=== PATIENT | male | born 1945 | race Caucasian/White ===

== ENCOUNTER → 2017-01-22 | Day surgery (SDC) | payer OTHER ==
[~2017-01-22] MED LIST: ACETAMINOPHEN 1000 MG/100 ML VIAL IV ONE; BACT800T5 PO; BUPIVACAINE/EPINEPHRINE 0.25% PF 30 ML VIAL ONE; CALC600T12 PO; CHOL100025 CHEW; CLIN1CAP5 PO; KETOROLAC TROMETHAMINE 30 MG/ML (IVP) VIAL IV PUSH ONE; LACTATED RINGER'S 1000 ML INJ 1,000 ML ONE; LIDOCAINE 1%/EPINEPHrine 1:100,000 SOLN 20 ML VIAL ONE; LISI10TA3 PO; MAGN500T4 PO; MEPERIDINE HCL 25 MG/ML VIAL ONE; MIDAZOLAM HCL 2 MG/2 ML VIAL ONE; MILK175C7 PO; NORC5TAB PO; ONDANSETRON HCL 4 MG/2 ML VIAL IV PUSH ONE; PRAV10TA PO; PROPOFOL 200 MG/20 ML AMP IV ONE; SODIUM CHLOR 0.9% 250 ML BAG IV ONE; TAMS0.4C4 PO; VANCOMYCIN HCL 1000 MG VIAL ONE; ZINC100T2 PO; ceFAZolin INJ 1,000 MG VIAL ONE
--- NOTE | 2017-01-24 11:15 | MP ---
cc: CHINMAY MURRY M.D., JON C. M.D. DATE OF SURGERY: 01/22/2017 PROCEDURE Repair of epigastric hernia with Ventralex ST mesh. PREOPERATIVE DIAGNOSIS Symptomatic reducible epigastric hernia. POSTOPERATIVE DIAGNOSIS Symptomatic reducible epigastric hernia. ANESTHESIA LMA. SURGEON Chandu PRODUCT TRANSFER PUMPER DINORA Marcano ESTIMATED BLOOD LOSS Less than 30 mL. FLUIDS 1050 mL crystalloid. COMPLICATIONS None. DRAINS None. SPECIMEN None. PROCEDURE IN DETAIL The patient was taken to the operating room and placed on the operating table in the supine position. After an adequate level of laryngeal mask anesthesia was instituted the abdomen was prepped and draped in the usual fashion. A timeout was taken confirming the correct patient, site and procedure to be performed. The presence of the STITCHING DEPARTMENT SUPERVISOR was necessary throughout the case for the appropriate retraction, dissection, visualization and resection of the important anatomical structures during the procedure. The STITCHING DEPARTMENT SUPERVISOR was present throughout the entire procedure and her skill set was medically and surgically necessary. The skin and subcutaneous tissue was infiltrated with local anesthetic and a longitudinal incision made above the umbilicus over the defect. Dissection was carried down to the hernia which was dissected around and inverted into the abdominal cavity. The fascia was elevated and the underlying structures dissected away. At this point the patient was felt to best be repaired utilizing a piece of mesh as he had previously had repair and had immediate recurrence. An 8 cm piece of Ventralex ST mesh was chosen and was placed in a retrofascial location. The mesh was fixed at multiple points with 0 Prolene suture. The fascia was then closed over this with #1 Prolene suture in an interrupted fashion. 30 mL of 0.25% Marcaine with epinephrine was injected into the fascia and subcutaneous tissues. The subcutaneous tissue was closed with interrupted 3-0 Vicryl suture, the skin closed with 5-0 PDS in a running subcuticular fashion. The wound was dressed with Steri-Strips and an abdominal binder applied. The patient was extubated in the recovery room. He tolerated the procedure well. MD HIRAM Diaz/ROMEO /10:59 AM /11:08 AM
== END | disposition home or self-care (01) ==
LOC: ESDC 07:29
PROVIDERS: ATTEND Surgery Trauma Surgery
DX: K43.9 Ventral hernia without obstruction or gangrene (principal)
CPT/HCPCS: 00750; 49570; C1781; J0131; J0690; J1885; J2175; J2250; J2405; J3010; J3370; J7050; J7120